=== PATIENT | male | born 1975 | race Hispanic/Latino ===

== ENCOUNTER 2024-08-14 04:19 | Emergency (ER) | payer BC, SELFPAY ==
[2024-08-14] MEDS ORDERED: HYDROcodone/Acetaminophen 5/325 mg Tablet ONE (04:46)
[2024-08-14] MEDS ORDERED: traMADol HCl 50 MG TAB ONE (04:49)
== END 2024-08-14 04:55 | disposition home or self-care (01) ==
LOC: CSHERS 04:19
DX: K08.89 Other specified disorders of teeth and supporting structures (principal); I10 Essential (primary) hypertension
CPT/HCPCS: 99282